=== PATIENT | male | born 1990 | race Caucasian/White ===

== ENCOUNTER 2018-09-29 06:59 | Emergency (ER) | payer SELFPAY ==
[~2018-09-29] VITALS: Ht 177.8 cm; Wt 88.5 kg
[2018-09-29] MEDS ORDERED: KETOROLAC 60 MG/2 ML ONE (07:22)
[2018-09-29] MEDS ORDERED: HYDROmorphone 2 MG/ML, 1ML ONE (07:22)
[2018-09-29] MEDS ORDERED: DIAZEPAM 5 MG TABLET ONE (07:23)
--- NOTE | 2018-09-29 07:29 | NUR ---
Pt to imaging.
[2018-09-29] MEDS ORDERED: DIAZEPAM 5 MG TABLET PO ONE (07:30)
[2018-09-29] MEDS ORDERED: HYDROmorphone 1 MG/ML, 1ML INJ IM ONE (07:30)
[2018-09-29] MEDS ORDERED: KETOROLAC 30 MG/1 ML IM ONE (07:30)
--- NOTE | 2018-09-29 08:12 | NUR ---
ERP at bedside. Pt reminded to press call light for any needs, particularly post medication. Denies any needs or concerns at this time. Call light in reach.
[2018-09-29 08:13] VITALS: BP 134/82
== END 2018-09-29 08:57 | disposition home or self-care (01) ==
LOC: ED 08:34
DX: S39.012A Strain of muscle, fascia and tendon of lower back, initial encounter (principal); S33.5XXA Sprain of ligaments of lumbar spine, initial encounter; M54.42 Lumbago with sciatica, left side; M54.41 Lumbago with sciatica, right side; M54.16 Radiculopathy, lumbar region; X50.9XXA Other and unspecified overexertion or strenuous movements or postures, initial encounter; Y93.89 Activity, other specified; Y92.009 Unspecified place in unspecified non-institutional (private) residence as the place of occurrence of the external cause; Y99.8 Other external cause status
CPT/HCPCS: 72110; 96372; 99283; J1170; J1885